=== PATIENT | male | born 1965 | race African-American/Black ===

== ENCOUNTER 2017-08-31 09:17 | Emergency (ER) | payer OTHER ==
[2017-08-31 09:39] VITALS: BP 113/77; PULSE 97; TEMP 98.9; BMI 26.6
[2017-08-31] MEDS ORDERED: SODIUM CHLORIDE 0.9% 1000 ML INFUS.BAG IV ONE ×2 (09:59→12:12)
--- NOTE | 2017-08-31 10:25 | PDOC ---
History of Present Illness - General Chief Complaint: Blood Sugar Problem Stated Complaint: Sugar Problem Time Seen by Provider: 08/31/17 10:06 History Source: Patient Exam Limitations: No Limitations - History of Present Illness Initial Comments: 08/31/17 10:20 Was sent by PMD where he was evaluated on Sunday this week. DrLety is Dr. Martinez at [facility]. went to see his doctor because he was feeling dizzy, mildly nauseous, with some visual changes. Multiple labs were and called him yesterday to tell him his blood sugars were very high and that he needed to come to emergency department for treatment and evaluation. Patient did not wish to go to [facility] so came to this hospital instead . Patient has a recent weight loss of 35 pounds secondary to using exclusive fruit juicing with minimal protein or water in his diet. His PMD stated had probable significant relationship to his new onset diabetes. Denies continued dizziness or nauseousness.denies fever, headache earache sore throat coughing sneezing. Denies chest pain palpitations or any recurrent swelling. had a recurrence of congestive heart failure some years ago that he feels is also diet related as he used excessive salt and was 40 pounds heavier. Was successful with his weight loss from a crash/extreme diet however had significant consequence. Has a glucometer but does not use as he "does not like needles". Timing/Duration: unsure Severity: moderate, severe Modifying Factors: improves with: eating Associated Symptoms: denies: cough, fever/chills, headaches, loss of appetite, malaise, nausea/vomiting Past History - Travel Traveled outside of the country in the last 30 days: Yes Close contact w/someone who was outside of country & ill: Yes - Past Medical History Allergies/Adverse Reactions: Allergies Allergy/AdvReac Type Severity Reaction Status Date / Time shellfish derived Allergy Verified 08/31/17 09:36 Home Medications: Ambulatory Orders Amlodipine Besylate [Norvasc -] 10 mg PO DAILY #30 tablet 05/15/16 Carvedilol [Coreg -] 12.5 mg PO BID #30 tablet 05/15/16 Furosemide [Lasix -] 40 mg PO BID@0600,1400 #30 tablet 05/15/16 Miscellaneous Medical Supply [Outpatient Order] 1 each ASDIR #1 misc Pantoprazole Sodium [Protonix -] 40 mg PO DAILY #15 tablet.ec 05/15/16 Valsartan [Diovan] 160 mg PO BID #30 tablet 05/15/16 Omeprazole 20 mg PO BID #28 capsule. 05/23/16 Glipizide 5 mg PO DAILY #14 tablet 08/31/17 Anemia: No Asthma: No Cancer: No Cardiac Disorders: Yes (WPW) CVA: No COPD: No CHF: No Dementia: No Diabetes: No GI Disorders: No Disorders: No HTN: Yes Hypercholesterolemia: No Liver Disease: No Seizures: No Thyroid Disease: No - Suicide/Smoking/Psychosocial Hx Smoking History: Never smoked Have you smoked in the past 12 months: No Cigars Per Day: 1 'Breaking Loose' booklet given: 05/07/16 Hx Alcohol Use: No Drug/Substance Use Hx: No Substance Use Type: None Hx Substance Use Treatment: No Review of Systems - Review of Systems Able to Perform ROS?: Yes Is the patient limited Khmer proficient: Yes Constitutional: Yes: Symptoms Reported, See HPI, Malaise. No: Chills, Fever, Loss of Appetite HEENTM: Yes: See HPI, Nose Congestion. No: Symptoms Reported, Throat Pain Respiratory: Yes: See HPI. No: Symptoms reported, Cough, Orthopnea, Shortness of Breath, Wheezing ABD/GI: Yes: Symptoms Reported, See HPI : Yes: See HPI. No: Symptoms Reported Integumentary: Yes: Symptoms Reported, See HPI Neurological: Yes: See HPI. No: Symptoms reported, Headache, Numbness, Paresthesia, Tingling All Other Systems: Reviewed and Negative *Physical Exam - Vital Signs Last Vital Signs Temp Pulse Resp BP Pulse Ox 98.9 F 97 H 19 113/77 98 08/31/17 09:36 08/31/17 09:36 08/31/17 09:36 08/31/17 09:36 08/31/17 09:36 - Physical Exam General Appearance: Yes: Nourished, Appropriately Dressed, Other (fruity/ acetone breath). No: Apparent Distress, Alcohol on Breath, Intoxicated HEENT: positive: POP, Normal ENT Inspection, Normal Voice, TMs Normal, Pharynx Normal. negative: Rhinorrhea, Sinus Tenderness Neck: positive: Supple. negative: Tender, Lymphadenopathy (R), Lymphadenopathy (L) Respiratory/Chest: positive: Lungs Clear, Normal Breath Sounds Cardiovascular: positive: Regular Rhythm, Regular Rate Gastrointestinal/Abdominal: positive: Soft. negative: Tender, Distended, Guarding, Rebound, Hepatomegaly, Spleenomegaly Musculoskeletal: positive: Normal Inspection. negative: CVA Tenderness Extremity: positive: Normal Inspection, Normal Range of Motion (no peripheral edema,). negative: Normal Capillary Refill, Tender Integumentary: positive: Dry, Warm, Pale Neurologic: positive: housekeeper II-XII NML intact, Fully Oriented, Alert, Normal Mood/ Affect, Normal Response, Motor Strength 12/22 ED Treatment Course - LABORATORY CBC & Chemistry Diagram: 08/31/17 10:50 08/31/17 13:50 Medical Decision Making - Medical Decision Making 08/31/17 12:13 Laboratory work returned showing sodium 122 and blood sugar 470. Revceived 2liters of Normal Saline. Will provoide 5 units of Reg Insulin, and PO Metformin. Will attempt to contact PMD for folowup and confirmation. 08/31/17 12:15 08/31/17 12:15 08/31/17 15:04 repeat BMP shows Na 132, Gluc 325. Pateint feels much improved, and ready for discharge. Discussed case with Dr. Martinez [phone] n who agrees with plan, recommended glipizide rather than metformin and patient given first dose here of 5 mg. We'll prescribe that medication for 14 days and patient understands will follow up with 'celina hillman this week, understands will check fingersticks daily, and understands need to return to emergency department for worsened symptoms, dizziness, nausea vomiting, dizziness or fingersticks greater than 400 08/31/17 15:06 *DC/Admit/Observation/Transfer Diagnosis at time of Disposition: Hyperglycemia - Discharge Dispostion Disposition: HOME Condition at time of disposition: Stable Admit: No - Prescriptions Prescriptions: Glipizide 5 mg PO DAILY #14 tablet - Referrals Referrals: Jonnathan Martinez MD [Primary Care Provider] - - Patient Instructions Printed Discharge Instructions: DI for Hyperglycemia -- Adult Additional Instructions: Rest, drink lots of fluids: Teas, water, soups Continue [id number] medications for symptomatic relief Tylenol or Motrin for fever and pain Glipizide 5 mg tablets daily Check fingersticks twice a day once in the morning and once in the afternoon. Understanding need to follow-up in the emergency department for fingersticks greater than 350. Followup with private physician in one to 2 days Return to emergency department for worsened symptoms, fevers, dehydration - Post Discharge Activity Forms/Work/School Notes: Back to Work
[2017-08-31 11:10] LABS: BASO % 1.1 % (0-2.0); EOS % 4.5 % (0-4.5); HEMATOCRIT 38.5 % (35.4-49); HEMOGLOBIN 12.4 GM/dL (11.7-16.9); LYMPH % 23.7 % (8-40); MCH 28.3 pg (25.7-33.7); MCHC 32.2 g/dl (32.0-35.9); MEAN CELL VOLUME 88.1 fl (80-96); MEAN PLT VOLUME 10.2 fl (7.5-11.1); MONO % 6.3 % (3.8-10.2); NEUT % 64.4 % (42.8-82.8); PLATELET COUNT 222 K/MM3 (134-434); RBC 4.37 M/mm3 (4.00-5.60); RDW 13.9 % (11.9-15.9); WHITE BLOOD COUNT 7.6 K/mm3 (4.0-10.0)
[2017-08-31 11:23] LABS: ALBUMIN 3.9 g/dl (3.4-5.0); ALK PHOS 139 U/L (45-117); ANION GAP 15 (8-16); BILIRUBIN,TOTAL 0.8 mg/dL (0.2-1.0); BLOOD UREA NITROGEN 32 mg/dL (7-18); CALCIUM 8.7 mg/dL (8.5-10.1); CHLORIDE 84 mmol/L (98-107); CO2 23 mmol/L (21-32); CREATININE 1.7 mg/dL (0.7-1.3); POTASSIUM 4.1 mmol/L (3.5-5.1); SGOT/AST 6 U/L (15-37); SGPT/ALT 19 U/L (12-78); TOT PROT 8.2 g/dl (6.4-8.2)
[2017-08-31 11:25] LABS: GLUCOSE,RANDOM 470 mg/dL (74-106); SODIUM 122 mmol/L (136-145)
[2017-08-31 11:54] LABS: URINE APPEARANCE CLEAR; URINE BILIRUBIN NEGATIVE (NEGATIVE); URINE BLOOD NEGATIVE (NEGATIVE); URINE COLOR STRAW; URINE GLUCOSE (UA) 3+ (NEGATIVE); URINE KETONE 2+ (NEGATIVE); URINE LEUK ESTERASE NEGATIVE (NEGATIVE); URINE NITRITE NEGATIVE (NEGATIVE); URINE PROTEIN NEGATIVE (NEGATIVE); URINE UROBILINOGEN NEGATIVE mg/dL (0.2-1.0)
[2017-08-31] MEDS ORDERED: INSULIN REGULAR HUMAN 100 UNITS/ML *VIAL IVPUSH ONE (12:11)
[2017-08-31] MEDS ORDERED: metFORMIN HCL 500 MG TABLET (FP) PO ONE (12:12)
[2017-08-31] MEDS ORDERED: INSULIN REGULAR HUMAN 100 UNITS/ML *VIAL ONE (12:21)
[2017-08-31] MEDS ORDERED: glipiZIDE 5 MG TABLET (FP) ONE (13:00)
[2017-08-31 14:43] LABS: ANION GAP 17 (8-16); BLOOD UREA NITROGEN 27 mg/dL (7-18); CALCIUM 8.1 mg/dL (8.5-10.1); CHLORIDE 94 mmol/L (98-107); CO2 21 mmol/L (21-32); CREATININE 1.4 mg/dL (0.7-1.3); POTASSIUM 3.9 mmol/L (3.5-5.1); SODIUM 132 mmol/L (136-145)
[2017-08-31 14:55] LABS: GLUCOSE,RANDOM 325 mg/dL (74-106)
== END 2017-08-31 15:19 | disposition home or self-care (01) ==
LOC: JER 09:17
PROC: 3E033VG Introduction of Insulin into Peripheral Vein, Percutaneous Approach (ICD-10-PCS; principal; 2017-08-31)
DX: E11.65 Type 2 diabetes mellitus with hyperglycemia (principal); Z79.84 Long term (current) use of oral hypoglycemic drugs
CPT/HCPCS: 36415; 80048; 80053; 81003; 82009; 83036; 85025; 99283-25